=== PATIENT | female | born 1970 | race Caucasian/White ===

== ENCOUNTER 2020-04-27 00:57 | Outpatient (CLI) | payer BC, SELFPAY ==
--- NOTE | 2020-04-27 06:45 | DI.US_ITS ---
EXAM: US PELVIS TRANSVAGINAL CLINICAL HISTORY: DYSFUNCTIONAL UTERINE BLEEDING,N93.8. TECHNIQUE: Transabdominal and transvaginal pelvic ultrasound was performed using standard protocol. COMPARISON: No exams were available for comparison FINDINGS: KIDNEYS: Kidneys are symmetric in size. No evidence of renal calculi. No evidence of hydronephrosis. No renal mass or cyst identified. UTERUS: Position: Anteverted. Size: 9.2 long by 4.9 AP x 6.9 transverse cm Endometrium: 1.2 cm. Normal for patient's menstrual status. Myometrium: Heterogeneous with multiple masses present likely reflecting fibroids. The largest is se en in the fundus and measures 4.2 x 3.1 x 3.5 cm. Cervix: Unremarkable. OVARIES: Right: 1.8 x 0.9 x 1.4 cm Cyst or mass: None. Left: 1.5 x 1 x 0.8 cm Cyst or mass: None. DOPPLER: Color: Symmetric and uniform flow to both ovaries. No hyperemia. CUL-DE-SAC: Free fluid: None. Other: None. IMPRESSION: 1. Normal sonographic appearance of the kidneys. 2. Fibroid uterus. 3. Unremarkable bilateral ovaries. DATA REPOSITORY:
== END 2020-04-27 01:17 ==
PROVIDERS: PCP Family Medicine; Visit Provider Family Medicine
DX: N93.8 Other specified abnormal uterine and vaginal bleeding (principal); D25.9 Leiomyoma of uterus, unspecified
CPT/HCPCS: 76830; 76856

== ENCOUNTER 2020-04-27 01:13 | Outpatient (CLI) | payer BC, SELFPAY ==
[2020-04-27 07:56] LABS: Abs Immature Grans 0.02 k/cumm (0.0-0.09); Absolute Basophil Count 0.04 k/cumm (0.0-0.2); Absolute Eosinophil Count 0.14 k/cumm (0.0-0.7); Absolute Lymphocyte Count 1.83 k/cumm (1.2-3.4); Absolute Monocyte Count 0.61 k/cumm (0.11-0.7); Absolute Neutrophil Count 5.16 k/cumm (1.2-6.7); Basophils % 0.5; Eosinophils % 1.8; HCT 35.9 % (36.0-46.0); Immature Grans % 0.3 %; Lymphocytes % 23.5; Mean Corp. HGB Concentration 30.6 g/dL (32.0-36.0); Mean Corpuscular Hemoglobin 25.5 pg (27.0-33.0); Mean Corpuscular Volume 83.3 fL (80-95); Mean Platelet Volume 9.7 fL (8.0-11.0); Monocytes % 7.8; Neutrophils % 66.1; Platelet Count 356 x1000/uL (130-400); RBC 4.31 m/cumm (4.00-5.20)
[2020-04-27 08:33] LABS: Iron 17 ug/dL (50-170); Total Iron Binding Capacity 394 ug/dL (250-450); Transferrin Sat 4 % (15-50)
[2020-04-27 08:55] LABS: ALT 23 U/L (14-59); AST 13 U/L (15-37); Albumin 3.8 g/dL (3.4-5.0); Alkaline Phosphatase 75 U/L (46-116); Anion Gap 6.3 mmol/L (3-11); BUN 14 mg/dL (7-18); Bilirubin, Total 0.2 mg/dL (0.2-1.0); CO2 29.7 mmol/L (21.0-32.0); CREATININE 0.85 mg/dL (0.55-1.02); Calcium 9.1 mg/dL (8.5-10.1); Calculated LDL 147 mg/dL (<100); Chloride 105 mmol/L (98-107); Cholesterol 235 mg/dL (<200); Ferritin 10 ng/mL (8-252); Glucose 105 mg/dL (74-106); HDL Cholesterol 62 mg/dL (40-60); Potassium 4.5 mmol/L (3.5-5.1); Sodium 141 mmol/L (136-145); Triglyceride 130 mg/dL (<150); Vitamin B12 245 pg/mL (193-986)
[2020-04-28 05:53] LABS: Vitamin D 25 Total 18.9 ng/ml (30-100)
== END 2020-04-27 01:33 ==
PROVIDERS: PCP Family Medicine; Visit Provider Family Medicine
DX: N93.8 Other specified abnormal uterine and vaginal bleeding (principal); F41.9 Anxiety disorder, unspecified; F98.8 Other specified behavioral and emotional disorders with onset usually occurring in childhood and adolescence; Z00.00 Encounter for general adult medical examination without abnormal findings
CPT/HCPCS: 36415; 80053; 80061; 82306; 82607; 82728; 83540; 83550; 84443; 85025

== ENCOUNTER 2020-04-29 05:33 | Outpatient (RCR) | payer BC, SELFPAY ==
[2020-04-29] MEDS: Normal Saline Flush 10 ML SYR IVP (13:00)
[2020-04-29] MEDS: SODIUM FER. GLUC./SUC. 125 MG in Normal Saline 100 ML 110 MG IVPB (13:13)
[2020-04-29 13:38] VITALS: BP 119/79; PULSE 87; RESP 18; O2SAT 99
== END 2020-05-17 23:59 | disposition home or self-care (01) ==
LOC: INF 05:33
PROVIDERS: PCP Family Medicine; Visit Provider Family Medicine
DX: D50.0 Iron deficiency anemia secondary to blood loss (chronic) (principal); N93.8 Other specified abnormal uterine and vaginal bleeding; R63.8 Other symptoms and signs concerning food and fluid intake
CPT/HCPCS: 96365; 96366; J3490

== ENCOUNTER 2020-05-10 16:39 | Outpatient (REF) | payer BC, SELFPAY ==
--- NOTE | 2020-05-10 16:00 | ENDOMET_PTH ---
PATIENT: Lory Hernandez LOC: [facility] U#:[id number] AGE/SX: 50/F ROOM: RE05/10/[address]: Nano Sarabia : 1970 BED: DIS: 05/10/2020 SPEC #: [id number] RECD: 05/10/20 17:46 STATUS: HEIDI REQ #: [id number] REINALDO: 05/10/20 16:[address]: Nano Sarabia DEPT: Surgical Specimen RECD BY: Stella Solis ENTERED: 05/10/20 17:47 SP TYPE: Endomet OTHR DR: Rosy Sherwood MD, DC Tissues: 1 - ENDOMETRIUM BX/CURRETTE Procedures: GROSS AND MICRO LEVEL 4 Comments: [id number]
== END 2020-05-10 16:59 ==
LOC: LBN 16:39
PROVIDERS: PCP Family Medicine; Visit Provider Obstetrics & Gynecology Gynecology
DX: N85.8 Other specified noninflammatory disorders of uterus (principal); N93.8 Other specified abnormal uterine and vaginal bleeding
CPT/HCPCS: 88305

== ENCOUNTER 2020-05-23 00:10 | Outpatient (CLI) | payer BC, SELFPAY ==
--- NOTE | 2020-05-23 07:00 | DI.MAMMO_ITS ---
EXAM: MAMMO SCREENING CLINICAL HISTORY: screening, Z12.39 TECHNIQUE: Mammograms were interpreted according to the usual protocol including computer analysis w [employer] CAD system, tomosynthesis and C-view imaging. COMPARISON: 2012 through 2018 FINDINGS: The breasts are composed of heterogeneously dense fibroglandular densities, Breast Density category C . No suspicious masses or suspicious microcalcifications are seen. No skin thickening or abnormal axillary lymph nodes are seen. There has been no significant change from prior exams. IMPRESSION: BI-RADS Category 1: Negative mammogram. Yearly screening mammography is recommended. Breast Density Category C, heterogeneously dense tissue which decreases the sensitivity of the mammog kiran. The mammogram demonstrates the patient's breast tissue is dense. Dense breast tissue is very common a nd is not abnormal but dense breast tissue can make it harder to find cancer on a mammogram. Also, de nse breast tissue may increase breast cancer risk. This information about the result of the mammogram report was provided to the patient to raise their awareness. Use this report when you speak with the patient about their risks for breast cancer, which includes their family history. At that time, you may recommend additional screening tests (Ultrasound or MRI) as they might be useful based on their r isk. A negative radiographic report should not delay biopsy if a dominant or clinically suspicious mass is present. Up to ten percent of cancers are not identified on mammography. A negative report may reinforce clinical impression. Adenosis and dense breasts may obscure an underlying neoplasm. False positive reports average 6 to 10%.
== END 2020-05-23 00:30 ==
PROVIDERS: PCP Family Medicine; Visit Provider Family Medicine
DX: Z12.31 Encounter for screening mammogram for malignant neoplasm of breast (principal)
CPT/HCPCS: 77063; 77067

== ENCOUNTER 2020-05-30 01:46 | Outpatient (CLI) | payer BC, SELFPAY ==
[2020-06-01 15:11] LABS: COVID-19 RT-PCR Result NEGATIVE (Negative)
== END 2020-05-30 02:06 ==
PROVIDERS: PCP Family Medicine; Visit Provider Obstetrics & Gynecology Gynecology
DX: Z11.59 Encounter for screening for other viral diseases (principal); Z01.818 Encounter for other preprocedural examination
CPT/HCPCS: U0003

== ENCOUNTER 2020-05-30 08:18 | Outpatient (CLI) | payer BC, SELFPAY ==
[2020-05-30 10:39] LABS: HCT 36.1 % (36.0-46.0); HGB 11.3 g/dL (12.0-15.5); Mean Corp. HGB Concentration 31.3 g/dL (32.0-36.0); Mean Corpuscular Volume 83.2 fL (80-95); Platelet Count 368 x1000/uL (130-400); RBC 4.34 m/cumm (4.00-5.20); White Blood Cell Count 6.07 k/cumm (4.4-10.8)
[2020-05-30 11:25] LABS: Anion Gap 8.2 mmol/L (3-11); BUN 7 mg/dL (7-18); CO2 28.8 mmol/L (21.0-32.0); CREATININE 0.74 mg/dL (0.55-1.02); Calcium 9.1 mg/dL (8.5-10.1); Chloride 103 mmol/L (98-107); Glucose 99 mg/dL (74-106); Potassium 4.7 mmol/L (3.5-5.1); Sodium 140 mmol/L (136-145)
[2020-05-30 11:31] LABS: HCG Quant, Pregnancy < 1 mIU/mL (1-3)
== END 2020-05-30 08:38 ==
PROVIDERS: PCP Family Medicine; Visit Provider Obstetrics & Gynecology Gynecology
DX: N93.8 Other specified abnormal uterine and vaginal bleeding (principal); Z01.818 Encounter for other preprocedural examination; Z01.812 Encounter for preprocedural laboratory examination
CPT/HCPCS: 36415; 80048; 85027; 86850; 86900; 86901; 84702

== ENCOUNTER 2020-06-08 11:47 | Observation (INO) | payer BC, SELFPAY ==
[2020-06-08] VITALS (18 sets, daily range): BP systolic 92–112; BP diastolic 52–73; PULSE 68–91; RESP 15–20; TEMP 36.3–36.9; O2SAT 96–100
[2020-06-08] MEDS: Lactated Ringers 1,000 ML 125 ML IV ×3 (06:44→19:17)
[2020-06-08] MEDS: ceFAZolin 2 GM/50 ML BAG IVPB (07:56)
[2020-06-08] MEDS: Bupivacaine 0.25% Pres-Free 30 ML VIAL (08:52)
--- NOTE | 2020-06-08 10:25 | UTER_PTH ---
PATIENT: Lory Hernandez LOC: OBS U#:[id number] AGE/SX: 50/F ROOM: OBS.305 RE06/08/[address]: Nano Sarabia : 1970 BED: A DIS: 06/09/2020 SPEC #: [id number] RECD: 06/08/20 12:44 STATUS: HEIDI REQ #: [id number] ERINALDO: 06/08/20 10:[address]: Nano Sarabia DEPT: Surgical Specimen RECD BY: Stella Solis ENTERED: 06/08/20 12:44 SP TYPE: UTER OTHR DR: Rosy Sherwood MD, DC Tissues: 1 - UTERUS W OR W/O OVARIES(NOT TUMOR/PROLAPSE) Procedures: GROSS AND MICRO LEVEL 5 Comments: [id number]
--- NOTE | 2020-06-08 11:55 | W.PM.OP ---
Date of service: 06/08/20 Time of Service: 11:56 Operative Note Operative Note DATE OF PROCEDURE: 06/08/20 PRE-OP DIAGNOSIS: abnormal uterine bleeding. fibroid uterus PROCEDURE: laparoscopic assisted vaginal hysterectomy with bilateral salpingectomy and bladder cystoscopy SURGEON: Nano Sarabia CUSTOM HARVESTER: Chery Torres ANESTHESIA: GETA and spinal ESTIMATED BLOOD LOSS: 200 PATHOLOGY: other (uterus, fallopian tubes, cervix) COMPLICATIONS: None Patient was transported to: PACU Patient's condition: stable Indications: Begin her on50yo female with history of abnormal uterine bleeding and symptomatic fibroid uterus who desires definitive therapy. Findings: Enlarged bulky uterus with a cervical and fundal fibroid. Normal right and left adnexa functional ovarian cyst on right ovary. Procedure Description: Patient was brought to the OR where she was placed in the dorsal supine position and spinal anesthesia was administered without difficulty. She was then placed in the dorsal lithotomy position in yellowfin stirrups with SCDs and teds hose on. She was prepped and draped in the usual sterile fashion a surgical timeout was performed a bivalve speculum was placed into the vagina and the anterior lip of the cervix grasped with single-tooth tenaculum and a Grigsby uterine manipulator was inserted and left in place. A Tony catheter was inserted to gravity drainage. Attention was turned to the patient's abdomen where the periumbilical subcutaneous tissue was infiltrated with quarter percent Marcaine without epinephrine. A 1.2 cm vertical skin incision was made with a scalpel and through this incision with CO2 insufflation showing a drop upon entry into the abdominal cavity. Pneumoperitoneum was established and a 12 mm Visiport was introduced under direct observation into the abdominal cavity. Patient was placed in Trendelenburg and the abdomen and pelvis carefully inspected. LigaSure bipolar device was used to incise the mesosalpinx along the length of the left fallopian tube which was then amputated from the uterus at the uterine cornua. It was then passed through the 10 mm scope and sent to pathology. The round ligament was identified grasped cauterized and incised and the anterior broad ligament was sequentially clamped cauterized and the sides to the lateral margin of the vesicouterine peritoneum. The bladder was carefully dissected away from the lower uterine segment. The uterine ovarian ligament was sequentially clamped cauterized and transected using the LigaSure device. The posterior broad ligament was incised and cauterized in a similar fashion. This revealed the branch of the left uterine artery which was sequentially cauterized. Effectively freeing the patient's left broad ligament from the uterine attachments. A similar technique was carried out on the patient's right fallopian tube which was not amputated from the uterine cornua but was left attached to the uterine cornua. Otherwise the uterus was detached from the ovarian ligament using the LigaSure device and both the anterior and posterior broad ligament were sequentially clamped cauterized and transected to the level of the lower uterine segment. Decision was made to proceed with the vaginal portion of the hysterectomy. A weighted speculum was placed into the vagina Two Susan clamps were placed on the anterior and posterior uterine cervix respectively and the body of the cervix was then infiltrated with 1% Lidocaine with dilute Epinephrine and the cervix was circumferentially incised with the Bovie electrocautery. The bladder was then dissected off of the pubovesical cervical fascia anteriorly with a moistened gauze. We were unable to enter the anterior cul-de-sac so his attention was turned to the posterior cul-de-sac where in a similar fashion the rectovaginal fascia was bluntly dissected and entry into the posterior cul-de-sac was performed sharply. A long billed weighted was placed in the posterior cul-de-sac and remained in place during the case. Both the right and left uterosacral/cardinal ligaments were shortened digitally,clamped, transected, and suture-ligated. This allowed entry into the anterior cul-de-sac through which a right angle retractor was placed to retract the bladder away from the operative field. The remaining right and left broad ligament was sequentially clamped cauterized and transected to the level of the uterine cornua. The uterus and cervix and remaining fallopian tube were then delivered through the vagina without difficulty. The peritoneum at the vaginal cuff was located and closed with a pursestring suture of 2-0 Vicryl. The vaginal incision was closed in a vertical fashion using a lock suture of 0 Vicryl. The abdomen where the pneumoperitoneum was once again reestablished and the vaginal cuff carefully inspected and noted be hemostatic with the exception of a small amount of bright red blood on the right lateral margin of the uterine incision. The bleeding sites were made hemostatic by using vascular clips x2. Normal saline was used to irrigate the pelvis and once again the pedicles were noted to be hemostatic. The instruments trochars were removed under direct visualization and all trocar sites hemostatic. The fascia of the umbilical port site was reapproximated with interrupted sutures of 0 Vicryl and the skin of all trocar sites reapproximated with subcuticular suture of 4-0 Monocryl and covered with skin glue. . A bladder cystoscopy was then performed with normal saline as the distention medium. Bladder surface was intact and E flux of indigocarmine dye was visualized from both ureteral orifices. The cystoscope was removed Tony catheter was reinserted to gravity drainage patient was placed in the dorsal supine position, awakened from anesthesia extubated and transported recovery area in stable condition. All sponge lap needle counts correct x2
[2020-06-08] MEDS: diphenhydrAMINE 50 MG/ML VIAL 12.5 MG IVP (15:05)
[2020-06-08] MEDS: Ketorolac 30 MG/ML VIAL IVP ×2 (17:10→23:24)
[2020-06-08] MEDS: Docusate Sodium 100 MG CAP PO (19:49)
[2020-06-09] MEDS: Lactated Ringers 1,000 ML 125 ML IV (03:02)
[2020-06-09 03:52] VITALS: BP 130/64; PULSE 71; RESP 16; TEMP 36.6; O2SAT 98
[2020-06-09] MEDS: Ketorolac 30 MG/ML VIAL IVP (05:10)
[2020-06-09] MEDS: Normal Saline Flush 10 ML SYR IV (05:11)
--- NOTE | 2020-06-09 07:51 | W.PM.PROGNOT ---
Date of Service Date of service: 06/09/20 Time of Service: 07:51 Assessment and Plan Assessment and plan (1) S/P laparoscopic assisted vaginal hysterectomy (LAVH): Status: Acute Assessment and plan: Postoperative day #1 status post laparoscopically assisted vaginal hysterectomy with bilateral salpingectomy. Doing well. Discharge home today. Tony catheter out this morning. Ambulate, advance diet, oral pain medication. Follow-up in the office in [address] Sarabia Subjective Subjective Patient reports: pain is less, tolerating a regular diet, flatus and afebrile Exam Narrative Exam Narrative: Patient seen this morning postoperative day #1. She is feeling well. She has had some itching from her spinal anesthesia. Pain is well controlled. She is tolerating regular diet without difficulties. Eyes General: appearance normal, both eyes and all related structures Resp Effort & Inspection: normal respiratory effort Cardio Rate: regular rate Rhythm: regular rhythm GI Inspection: normal to inspection Palpation: soft, no guarding and nontender Other: Incisions are well approximated with a minimal amount of surrounding ecchymosis. No drainage. Skin General skin exam: no rashes or lesions noted Extrem General: no clubbing, cyanosis or edema and no calf tenderness Psych Appearance: grossly normal Speech and Movement: speech and movement normal Mood: congruent mood Affect: normal affect Attitude: cooperative Thought Process: normal Thought Content: normal Objective Objective Clinical Data: Vital Signs Temperature 97.9 F 06/09/20 03:52 Temperature Source Oral 06/09/20 03:52 Pulse 71 06/09/20 03:52 Pulse Rhythm Regular 06/08/20 23:36 Respiratory Rate 16 06/09/20 03:52 Respiratory Effort 06/09/20 03:52 Respiratory Depth Normal 06/09/20 03:52 Respiratory Pattern Normal 06/09/20 03:52 Blood Pressure 130/64 06/09/20 03:52 Pulse Oximetry 98 06/09/20 03:52 Respiratory End-tidal CO2 36 06/08/20 12:00 Oxygen Delivery Method Room Air 06/09/20 03:52 Oxygen Flow Rate 0 06/09/20 03:52 Pain Level 1 06/09/20 05:10 Comment 06/08/20 23:31 Intake & Output 06/08/20 06/08/20 06/09/20 11:59 23:59 11:59 Intake Total 950 / 1064.584 / 964.583 / 964.583 Output Total 200 / 1325 1125 / 1325 Balance 750 / 689.584 -60.416 / 689.584 964.583 / 964.583 Weight 214 lb 8.156 oz Intake: IV 950 / 1064.584 / 964.583 / 964.583 Output: Urine 1125 / 1125 Estimated Blood Loss 200 / 200 Other: Urine Color Yellow Green Pale Urine Appearance Clear Clear Clear Emesis Description None None
[2020-06-09] MEDS: Budesonide/Formoterol 160/4.5 6 GM 60 PUFF INH IH (07:55)
[2020-06-09] MEDS: Docusate Sodium 100 MG CAP PO (07:55)
--- NOTE | 2020-06-09 08:08 | W.PM.DS.N ---
Date of service: 06/09/20 Time of Service: 08:08 DS: Diagnosis Discharge Diagnosis (1) S/P laparoscopic assisted vaginal hysterectomy (LAVH): Status: Acute Discharge Plan Disposition Patient Disposition: HOME Condition: Good Discharge Details Reason For Visit: LAPAROSCOPIC ASSISTED VAGINAL HYSTERECTOMY Admit Date/Time: 06/08/20 11:47 Admit Provider: Nano Sarabia Attending Provider: Nano Sarabia Primary Care Provider: Rosy Sherwood [facility] Hospital Course: Patient underwent laparoscopically assisted vaginal hysterectomy with bilateral salpingectomy. She had normal postoperative course, normal intraoperative course. She was discharged home postoperative day #1, ambulating, tolerating regular diet and oral pain medication with stable vital signs. Home Meds and New Rx's Prescriptions: New ibuprofen 800 mg tablet 800 mg PO Q8H MDD 3 Qty: 30 RF: 0 hydrocodone-acetaminophen [[place]] 5-325 mg tablet 1 tab PO Q8H PRNQty: 12 RF: 0 docusate sodium [Colace] 100 mg capsule 100 mg PO DAILY Qty: 20 RF: 0 Continued methylphenidate HCl 10 mg tablet 20 mg PO BID MDD 4 Qty: 120 RF: 0 prochlorperazine maleate [Compazine] 10 mg tablet 10 mg PO Q8H PRN (Reason: nausea and vomiting) Qty: 60 RF: 0 elderberry fruit 200 mg capsule 200 mg PO DAILY RF: 0 venlafaxine 75 mg capsule,extended release 24hr 75 mg PO DAILY RF: 0 norethindrone acetate 5 mg tablet 5 mg PO DAILY Qty: 60 RF: 1 multivitamin 1 EACH tablet 1 ea PO DAILY RF: 0 ibuprofen 200 MG tablet 600 mg PO PRN RF: 0 levalbuterol tartrate [Xopenex HFA] 15 GM HFA aerosol inhaler 2 puff Inhalation TID PRNQty: 3 RF: 4 budesonide-formoterol [Symbicort] 10.2 GM HFA aerosol inhaler 2 puff Inhalation BID Qty: 3 RF: 12 ferrous gluconate 324 mg (38 mg iron) tablet 324 mg PO TID Qty: 90 RF: 5 ergocalciferol (vitamin D2) 1,250 mcg (50,000 unit) capsule 50,000 unit PO .3times week Qty: 38 RF: 4 Discharge Instructions Instructions: Laparoscopic Hysterectomy (DC) Additional Instructions: Pelvic rest for 6 weeks. No heavy lifting for 6 weeks Activity:: Activity as Tolerated Equipment/Supplies:: No Equipment Needed Diet:: Normal Diet Discharge Orders Discharge Orders: Discharge Order (Routine); Ordered 06/09/20 Ordered By: Chery Torres DS: Summary Status at Discharge Functional status at discharge: independent ambulation Overall status at discharge: patient is back to baseline Mental Status: mental status grossly normal Speech and Movement: speech and movement normal Mood: congruent mood Affect: normal affect Exam Narrative Exam Narrative: Patient seen and examined this morning. Doing well. Const General: healthy appearing, comfortable and no acute distress Nutritional Appearance: well nourished Orientation: alert and oriented to person Eyes General: appearance normal, both eyes and all related structures Resp Effort & Inspection: normal respiratory effort Cardio Rate: regular rate Rhythm: regular rhythm GI Inspection: normal to inspection, non-distended and incision Palpation: soft and no guarding Auscultation: normal bowel sounds Skin General skin exam: no rashes or lesions noted Extrem General: normal to inspection, no clubbing, cyanosis or edema and no calf tenderness Psych Mental Status: mental status grossly normal Speech and Movement: speech and movement normal Mood: congruent mood Affect: normal affect DS: Data Vitals/I&O Vitals and I&O: Vital Signs Temperature 97.9 F 06/09/20 03:52 Temperature Source Oral 06/09/20 03:52 Pulse 71 06/09/20 03:52 Pulse Rhythm Regular 06/08/20 23:36 Respiratory Rate 16 06/09/20 03:52 Respiratory Effort 06/09/20 03:52 Respiratory Depth Normal 06/09/20 03:52 Respiratory Pattern Normal 06/09/20 03:52 Blood Pressure 130/64 06/09/20 03:52 Pulse Oximetry 98 06/09/20 03:52 Respiratory End-tidal CO2 36 06/08/20 12:00 Oxygen Delivery Method Room Air 06/09/20 03:52 Oxygen Flow Rate 0 06/09/20 03:52 Pain Level 1 06/09/20 05:10 Comment 06/08/20 23:31 Intake & Output 06/08/20 06/08/20 06/09/20 11:59 23:59 11:59 Intake Total 950 / 2013.584 1064.584 2013.584 964.583 / 964.583 Output Total 200 / 1325 1125 / 1325 Balance 750 / 689.584 -60.416 / 689.584 964.583 / 964.583 Weight 214 lb 8.156 oz Intake: IV 950 / 2013.584 1064.584 / 2013.584 964.583 / 964.583 Output: Urine 1125 / 1125 Estimated Blood Loss 200 / 200 Other: Urine Color Yellow Green Pale Urine Appearance Clear Clear Clear Emesis Description None None PFSH Medical History ADD (attention deficit disorder) (Chronic 03/14/17) Anxiety (Chronic 03/14/17) Asthma (Chronic) MONITORING-IFRAH Atypical squamous cell changes of undetermined significance (ASCUS) on vaginal cytology (Resolved) 03/22 ASCUS POS ;HPV NEG repeat PAP and HPV neg Feeling stressed out (Resolved) family situations Headache disorder (Chronic 07/23/17) Lumbago (Resolved) Temporomandibular joint disorder (TMJ) (Resolved) 10/17/05 URI (upper respiratory infection) (Inactive) Surgical History Appendectomy (~03/1986) Cholecystectomy (~10/2009) S/P laparoscopic assisted vaginal hysterectomy (LAVH) (Acute) with bilateral salpingectomy Family History Mother Asthma Father Diabetes Essential hypertension Sister No problems noted. Brother No problems noted. Maternal Grandfather , 30s Heart disease Paternal Grandfather , 70s Diabetes Essential hypertension Heart disease Stroke Maternal Grandmother , 70s TB (tuberculosis) Breast cancer Asthma Paternal Grandmother , 20s No problems noted. Social History Smoking/Tobacco Use Status: Never Alcohol Intake: current Alcohol Intake frequency: a few times a week Alcohol type: wine Drug use: Never Substance use type: does not use Caregiver/Support person: No Household members: spouse and children Housing: house Communication Needs: Corrective Lenses Do you need help understanding health information?: Rarely current occupation: WORK FOR A NON PROFIT Pets and animals: Yes Pets and animals: cat(s) and dog(s) Sexually active: Yes Do you think of yourself as: straight/heterosexual Current gender identity: female What is your relationship status?: How often do you talk on the phone with friends or family?: three or more times per week How often do you get together with friends or relatives?: decline to answer Do you belong to any clubs or organized social groups?: no Panel score (0-1 are the most socially isolated patients): 2 What type of physical activity do you participate in: walking and yoga Duration: < 15 minutes/day Frequency: daily Deborah/Yazdanism: No preference Special deborah needs: No Seatbelt use: always Drive intox or ride w/intox seasonal driver: No Do you feel safe at home: Yes Do you feel safe in your relationship?: Yes
[2020-06-09 08:30] VITALS: BP 91/57; PULSE 70; RESP 16; TEMP 36.8; O2SAT 99
== END 2020-06-09 13:35 | disposition home or self-care (01) ==
LOC: OBS 12:58
PROVIDERS: Admitting Provider Obstetrics & Gynecology Gynecology; PCP Family Medicine; Visit Provider Obstetrics & Gynecology Gynecology
PROC: 0UT9FZZ Resection of Uterus, Via Natural or Artificial Opening With Percutaneous Endoscopic Assistance (ICD-10-PCS; CPT 58552; principal; 2020-06-08 07:30)
DX: N80.0 Endometriosis of uterus (principal); D25.1 Intramural leiomyoma of uterus; N72 Inflammatory disease of cervix uteri; N83.8 Other noninflammatory disorders of ovary, fallopian tube and broad ligament; N93.8 Other specified abnormal uterine and vaginal bleeding; D25.9 Leiomyoma of uterus, unspecified; G89.18 Other acute postprocedural pain; Z90.710 Acquired absence of both cervix and uterus
CPT/HCPCS: 58552; 96360; 96361; 99232; 99238; 88307; G0378; J0690; J1100; J1200; J1885; J2001; J2250; J2310; J2405; J2704; J3010

== ENCOUNTER 2020-10-10 04:24 | Outpatient (CLI) | payer BC, SELFPAY ==
[2020-10-11 21:18] LABS: Patient Race White; SARS-CoV-2 RNA Undetected (Undetected); SARS-CoV-2 Specimen Source Nasal
== END 2020-10-10 04:44 ==
PROVIDERS: PCP Family Medicine; Visit Provider Family Medicine
DX: Z11.59 Encounter for screening for other viral diseases (principal)
CPT/HCPCS: U0003

== ENCOUNTER 2021-02-07 03:11 | Outpatient (CLI) | payer BC, SELFPAY ==
[2021-02-08 13:58] LABS: COVID-19 RT-PCR UVMMC Result Negative (Negative)
== END 2021-02-07 03:12 | disposition home or self-care (01) ==
LOC: LBO 03:11
PROVIDERS: PCP Family Medicine; Visit Provider Family Medicine
DX: Z20.822 Contact with and (suspected) exposure to COVID-19 (principal)
CPT/HCPCS: U0003

== ENCOUNTER 2021-08-07 18:48 | Outpatient (REF) | payer BC, SELFPAY ==
[2021-08-09 17:07] LABS: COVID-19 RT-PCR UVMMC Result Negative (Negative)
== END 2021-08-07 18:49 | disposition home or self-care (01) ==
LOC: NCHCN 18:48
PROVIDERS: PCP Family Medicine; Referring Provider Family Medicine; Visit Provider Family Medicine
DX: Z20.822 Contact with and (suspected) exposure to COVID-19 (principal); R09.81 Nasal congestion
CPT/HCPCS: U0003

== ENCOUNTER 2021-10-03 08:44 | Outpatient (CLI) | payer BC, SELFPAY ==
--- NOTE | 2021-10-03 11:15 | DI.MAMMO_ITS ---
Exam(s) MAMMO SCREENING EXAM: MAMMO SCREENING CLINICAL HISTORY: screening TECHNIQUE: Mammograms were interpreted according to the usual protocol including computer analysis w [employer] CAD system, tomosynthesis and C-view imaging. COMPARISON: 2012 through 2019 FINDINGS: The breasts are composed of heterogeneously dense fibroglandular densities, Breast Density category C . No suspicious masses or suspicious microcalcifications are seen. No skin thickening or abnormal axillary lymph nodes are seen. There has been no significant change from prior exams. IMPRESSION: BI-RADS Category 1, Negative mammogram. Yearly screening mammography is recommended. Breast Density Category C, heterogeneously Dense. The mammogram demonstrates the patient's breast tissue is dense. Dense breast tissue is very common a nd is not abnormal but dense breast tissue can make it harder to find cancer on a mammogram. Also, de nse breast tissue may increase breast cancer risk. This information about the result of the mammogram report was provided to the patient to raise their awareness. Use this report when you speak with the patient about their risks for breast cancer, which includes their family history. At that time, you may recommend additional screening tests (Ultrasound or MRI) as they might be useful based on their r isk. A negative radiographic report should not delay biopsy if a dominant or clinically suspicious mass is present. Up to ten percent of cancers are not identified on mammography. A negative report may reinforce clinical impression. Adenosis and dense breasts may obscure an underlying neoplasm. False positive reports average 6 to 10%.
== END 2021-10-03 09:04 ==
PROVIDERS: PCP Family Medicine; Visit Provider Family Medicine
DX: Z12.31 Encounter for screening mammogram for malignant neoplasm of breast (principal)
CPT/HCPCS: 77063; 77067

== ENCOUNTER 2021-11-24 09:41 | Outpatient (CLI) | payer BC, SELFPAY ==
--- NOTE | 2021-11-24 09:00 | DI.RAD_ITS ---
Exam(s) XR CHEST 2V PA LATERAL EXAM: XR CHEST 2V PA LATERAL CLINICAL HISTORY: cough worsening,COVID +, U07.1 TECHNIQUE: 2D digital imaging was performed of the chest. Two images were obtained. PA and lateral views were obtained. COMPARISON: No exams were available for comparison FINDINGS: MEDIASTINUM: Normal. HEART: Normal. PULMONARY VASCULATURE: Normal. LUNGS: Clear. PLEURAL SPACE: No pleural effusion or pneumothorax. BONE:Within normal limits for the patient's age. OTHER FINDINGS:Normal. IMPRESSION: No acute pulmonary findings. DATA REPOSITORY: RADIATION DOSE DELIVERED:
== END 2021-11-24 10:01 ==
PROVIDERS: PCP Family Medicine; Visit Provider Physician Assistant
DX: U07.1 COVID-19 (principal)
CPT/HCPCS: 71046

== ENCOUNTER 2022-07-12 09:24 | Outpatient (CLI) | payer BC, SELFPAY ==
[2022-07-12 12:35] LABS: HCT 40.6 % (36.0-46.0); HGB 12.8 g/dL (11.2-15.7); MCH 27.1 pg (27.0-33.0); MCHC 31.5 % (32.0-36.0); MCV 86 fL (80-95); MPV 10.2 fL (8.0-11.0); Platelet Count 301 10^3/uL (130-400); RBC 4.73 10^6/uL (3.93-5.22); RDW 14.4 % (11.7-14.6); RDW-SD 45.5 fL; WBC 6.92 10^3/uL (4.4-10.8)
[2022-07-12 13:05] LABS: ALT 30 U/L (14-59); AST 22 U/L (15-37); Albumin 4.1 g/dL (3.4-5.0); Alkaline Phosphatase 71 U/L (46-116); Anion Gap 7.8 mmol/L (3-11); BUN 9 mg/dL (7-18); Bilirubin, Total 0.5 mg/dL (0.2-1.0); CO2 31.2 mmol/L (21.0-32.0); CREATININE 0.8 mg/dL (0.55-1.02); Calcium 9.3 mg/dL (8.5-10.1); Calculated LDL 171 mg/dL (<100); Chloride 102 mmol/L (98-107); Cholesterol 277 mg/dL (<200); Glucose 113 mg/dL (74-106); HDL Cholesterol 88 mg/dL (40-60); Potassium 4.7 mmol/L (3.5-5.1); Sodium 141 mmol/L (136-145); TSH (W/Ref FT4) 2.36 uIU/mL (0.36-3.74); Total Protein 8.1 g/dL (6.4-8.2); Triglyceride 90 mg/dL (<150)
== END 2022-07-12 09:25 | disposition home or self-care (01) ==
LOC: LOS 09:24
PROVIDERS: PCP Family Medicine; Referring Provider Family Medicine; Visit Provider Family Medicine
DX: Z00.00 Encounter for general adult medical examination without abnormal findings (principal); E66.3 Overweight; J45.909 Unspecified asthma, uncomplicated
CPT/HCPCS: 36415; 80053; 80061; 85027; 84443

== ENCOUNTER 2023-06-05 14:06 | Outpatient (REF) | payer BC, SELFPAY ==
[2023-06-05 19:40] LABS: *AMPHETAMINES SCREEN URINE Negative (Negative); *BARBITURATES SCREEN URINE Negative (Negative); *BENZODIAZEPINES SCREEN URINE Negative (Negative); Cannabinoids THC Negative (Negative); Cocaine Screen,Urine Negative (Negative); METHADONE URINE SCREEN Negative (Negative); OPIATES URINE SCREEN Negative (Negative)
[2023-06-05 19:41] LABS: Tricyclic Antidepressants Negative (Negative)
== END 2023-06-05 14:07 | disposition home or self-care (01) ==
LOC: LBN 14:06
PROVIDERS: PCP Family Medicine; Visit Provider Nurse Practitioner Family
DX: F98.8 Other specified behavioral and emotional disorders with onset usually occurring in childhood and adolescence (principal)
CPT/HCPCS: 80307

== ENCOUNTER → 2023-07-10 03:46 | Outpatient (CLI) | payer BC, SELFPAY ==
--- NOTE | 2023-07-10 07:15 | DI.MAMMO_ITS ---
Exam(s) MAMMO SCREENING EXAM: MAMMO SCREENING CLINICAL HISTORY: screening,z12.39 TECHNIQUE: Bilateral full field digital CC and MLO mammographic images were obtained with 3D tomosyn thesis and utilizing computer aided detection (CAD). COMPARISON: Available for comparison. FINDINGS: Masses/Architectural Distortion: None seen. Microcalcifications: No suspicious pleomorphic-type are seen. Skin Thickening/Nipple Retraction: None. IMPRESSION: 1. No significant interval change with no specific features of malignancy noted. 2. Unless there is more urgent need, screening mammography is recommended, as per [employer] guidelines. BI-RADS Category 1 - Negative Breast Density - Category C - Heterogeneously dense Breast density category C or D implies that the patient has dense breast tissue. Dense breast tissue is very common and is not abnormal but dense breast tissue can make it harder to find cancer on a ma mmogram. Also, dense breast tissue may increase their breast cancer risk. This information about the result of the mammogram report was provided to the patient to raise their awareness. Use this report when you speak with the patient about their risks for breast cancer, which includes their family hist ory. At that time, you may recommend for more screening tests (Ultrasound or MRI) as they might be us eful based on their risk. A negative radiographic report should not delay biopsy if a dominant or clinically suspicious mass is present. Up to ten percent of cancers are not identified on mammography. A negative report may reinforce clinical impression. Adenosis and dense breasts may obscure an underlying neoplasm. False positive reports average 6 to 10%. Patient will receive a letter notifying them of these results.
== END ==
PROVIDERS: PCP Nurse Practitioner Family; Visit Provider Nurse Practitioner Family
DX: Z12.31 Encounter for screening mammogram for malignant neoplasm of breast (principal)
CPT/HCPCS: 77063; 77067

== ENCOUNTER 2024-07-31 01:17 | Outpatient (CLI) | payer BC, SELFPAY ==
[2024-07-31 09:37] LABS: Anion Gap 7.1 mmol/L (3-11); BUN 14 mg/dL (7-18); CO2 30.9 mmol/L (21.0-32.0); CREATININE 0.8 mg/dL (0.55-1.02); Calculated LDL 172 mg/dL (<100); Chloride 104 mmol/L (98-107); Cholesterol 274 mg/dL (<200); Estimated GFR 86.96 (mL/min/1.73m2); Glucose 108 mg/dL (74-106); HDL Cholesterol 87 mg/dL (40-60); Potassium 4.6 mmol/L (3.5-5.1); Sodium 142 mmol/L (136-145); Triglyceride 75 mg/dL (<150)
[2024-08-03 09:54] LABS: Hepatitis C Ab w Rflx HCV PCR Negative (Negative)
[2024-08-03 10:51] LABS: HBs Antibody, Quant <3.1 mIU/mL (See Note); Hep B Surface Ab Negative (See Note); Hepatitis B Core Antibody Negative (Negative); Hepatitis B Surface Antigen Negative (Negative)
== END 2024-07-31 01:18 | disposition home or self-care (01) ==
PROVIDERS: PCP Nurse Practitioner Family; Visit Provider Nurse Practitioner Family
DX: Z11.59 Encounter for screening for other viral diseases (principal); F33.9 Major depressive disorder, recurrent, unspecified; E78.5 Hyperlipidemia, unspecified; E55.9 Vitamin D deficiency, unspecified
CPT/HCPCS: 36415; 80048; 80061; 82306; 86704; 86706; 86803; 87340; 83036

== ENCOUNTER 2024-12-18 20:39 | Outpatient (REF) | payer BC, SELFPAY ==
[2025-01-01 13:45] LABS: Amphetamine None Detected
== END 2024-12-18 20:40 | disposition home or self-care (01) ==
LOC: LBN 20:39
PROVIDERS: PCP Nurse Practitioner Family; Visit Provider Nurse Practitioner Family
DX: Z79.899 Other long term (current) drug therapy (principal); F90.9 Attention-deficit hyperactivity disorder, unspecified type
CPT/HCPCS: 80324

== ENCOUNTER 2025-02-26 00:12 | Outpatient (CLI) | payer BC, SELFPAY ==
--- NOTE | 2025-02-26 09:10 | DI.MAMMO_ITS ---
Exam(s) MAMMO SCREENING EXAM: MAMMO SCREENING CLINICAL HISTORY: screening,z12.39 TECHNIQUE: Mammograms were interpreted according to the usual protocol including computer analysis w [employer] CAD system, tomosynthesis and C-view imaging. COMPARISON: 2017 through 2022 FINDINGS: The breasts are composed of scattered fibroglandular densities, Breast Density category B. Right breast: No suspicious masses or suspicious microcalcifications are seen. No skin thickening or abnormal axillary lymph nodes are seen. There has been no significant change from prior exams. Left breast: The posterior lateral aspect of the left breast, at the edge of the image on CC view, th ere is a question of an area increased nodular density. Spot compression view is requested. Ultraso und may be indicated at that time. There is no skin thickening or axillary lymph nodes. No suspicio us microcalcifications. IMPRESSION: Left breast: BI-RADS Category 0 - Incomplete: Need additional imaging evaluation mammogram Right breast: Yearly screening mammography is recommended. Breast Density - Category B, scattered fibroglandular densities. A negative radiographic report should not delay biopsy if a dominant or clinically suspicious mass is present. Up to ten percent of cancers are not identified on mammography. A negative report may reinforce clinical impression. Adenosis and dense breasts may obscure an underlying neoplasm. False positive reports average 6 to 10%. Patient will receive a letter notifying them of these results.
== END 2025-02-26 00:32 ==
LOC: DI 00:12
PROVIDERS: PCP Nurse Practitioner Family; Visit Provider Nurse Practitioner Family
DX: Z12.31 Encounter for screening mammogram for malignant neoplasm of breast (principal); R92.323 Mammographic fibroglandular density, bilateral breasts
CPT/HCPCS: 77063; 77067

== ENCOUNTER 2025-03-05 00:07 | Outpatient (CLI) | payer BC, SELFPAY ==
--- NOTE | 2025-03-05 | DI.US_ITS ---
Exam(s) MG MAMMO SCREEN CALL BACK UNI US BREAST LT COMPLETE EXAM: MG MAMMO SCREEN CALL BACK UNI-LEFT AND COMPLETE LEFT BREAST ULTRASOUND CLINICAL HISTORY: R92.8 ABN Mammo, LT breast ? of increased nodular density posterior lateral. TECHNIQUE: Unilateral LEFT BREAST spot mammographic images obtained with 3D tomosynthesisand [employer] ng computer aided detection (CAD). . Complete LEFT breast Ultrasound was also performed, including all 4 quadrants, the retroareolar regio n, and the ipsilateral axilla. COMPARISON: Prior mammograms dating back to 2018 were reviewed. This additional imaging was perfo rmed due to findings described on the recent screening mammogram of 02/26/2025. FINDINGS: DIAGNOSTIC MAMMOGRAM: Additional mammographic views performed todaydoes not dissipate the finding in the posterior aspect o f the breast on CC view. There are no malignant-appearing microcalcification region. On the spot co mpression view and is difficult to determine if this is overlapping tissue versus true nodule. Unfor tunately numerous prior mammograms did not reach as far back into the breast to determine if this has been present previously. COMPLETE LEFT BREAST ULTRASOUND: Ultrasound performed today reveals a 2 millimeter microcyst at the 1 o'clock position, 7 cm in from t he nipple. This does not have appearance correspond to the finding on the mammogram. There are no u ltrasound findings posteriorly to correspond to the finding on the mammogram. Scanning of the ipsilateral axilla reveals no significant adenopathy. IMPRESSION: 1. Mammographically visible asymmetric density posteriorly in the left breast lateral of center near the chest wall. Is difficult to determine if this has been present on prior mammograms as the mammo gram of 02/26/2025 was a 1st mammogram that reached this far back into the breast. 2. There is no ominous mass evident on ultrasound at this location or elsewhere in the left breast. The only finding on ultrasound is a benign 2 millimeter microcyst at the 1 o'clock position. Appropriate follow-up as discussed by myself with the patient today is repeat left breast mammogram w ith repeat exaggerated CC spot view in 3 months time and also recommend repeating the breast ultrasou nd at that time.. The patient was informed of these findings and recommendations by myself prior to leaving the departm ent today. BI-RADS Category 3 - 3 month - Probably Benign Finding: Recommend follow-up mammography in 3 months Breast Density - Category C - Heterogeneously dense Breast density Category C or D implies that the patient has dense breast tissue. Dense breast tissue can make it harder to find cancer on a mammogram. Dense breast tissue is also associated with an incr eased risk of breast cancer. This information about the result of the mammogram report was provided to the patient to raise their awareness. Use this report when you speak with the patient about their risks for breast cancer, which includes their family history. At that time, you may recommend additional screening tests (Ultrasoun d or MRI) as these tests may add significant information. A negative radiographic report should not delay biopsy if a dominant or clinically suspicious mass is present. Up to ten percent of cancers are not identified on mammography. A negative report may reinforce clinical impression. Adenosis and dense breasts may obscure an underlying neoplasm. False positive reports average 6 to 10%. Patient will receive a letter notifying them of these results.
== END 2025-03-05 00:27 ==
LOC: DI 00:07
PROVIDERS: PCP Nurse Practitioner Family; Visit Provider Nurse Practitioner Family
DX: Z12.31 Encounter for screening mammogram for malignant neoplasm of breast (principal); R92.8 Other abnormal and inconclusive findings on diagnostic imaging of breast; R92.333 Mammographic heterogeneous density, bilateral breasts
CPT/HCPCS: 76642; 77063; 77067

== ENCOUNTER 2025-06-17 02:13 | Outpatient (CLI) | payer BC, SELFPAY ==
--- NOTE | 2025-06-17 | DI.US_ITS ---
Exam(s) US BREAST LT COMPLETE MG MAMMO DIAGNOSTIC UNI EXAM: MG MAMMO DIAGNOSTIC UNI-LEFT AND COMPLETE LEFT BREAST ULTRASOUND CLINICAL HISTORY: 3-6 mo f/u, f/u abnl lt, inconclusive mammo R92.8, Z09. TECHNIQUE: Unilateral LEFT BREAST CC AND MLO AND EXAGGERATED CC mammographic images were obtained with 3D tomosynthesis technique and utilizing computer aided detection (CAD). COMPLETE LEFT BREAST ULTRASOUND performed including all 4 quadrants as well as the left axilla. COMPARISON: Prior mammograms were reviewed, the most recent being February 2025. Ultrasound of February 2025 was also reviewed. FINDINGS: DIAGNOSTIC LEFT BREAST MAMMOGRAM: The asymmetric density located posterolaterally is unchanged from the mammogram of February 2025. there are no malignant-appearing microcalcification groups in this region nor elsewhere in left breast. Again noted that all prior mammograms did not reach as far back on the CC view as did the mammogram of February 2025. COMPLETE LEFT BREAST ULTRASOUND: There is no evidence of solid or significant cystic lesions in all 4 quadrants. The previously described small 2 mm microcyst at the 1 o'clock position is no longer seen. There are again no findings on ultrasound to correspond to the asymmetric density located posteriorly on the CC mammographic view. Scanning of the left axilla is again negative for significant adenopathy. IMPRESSION: 1. Stable mammographic finding posteriorly in the left breast as described above. 2. Negative complete left breast ultrasound Appropriate follow-up is repeat left breast imaging in 6 months. The patient was informed of the findings and follow-up recommendations by myself prior to leaving the department today. BI-RADS Category 3 - 6 month - Probably Benign Finding: Recommend follow-up mammography in 6 months Breast Density - Category C - The breast are heterogeneously dense, which may obscure small masses. Breast density Category C or D implies that the patient has dense breast tissue. Dense breast tissue can make it harder to find cancer on a mammogram. Dense breast tissue is also associated with an increased risk of breast cancer. This information about the result of the mammogram report was provided to the patient to raise their awareness. Use this report when you speak with the patient about their risks for breast cancer, which includes their family history. At that time, you may recommend additional screening tests (Ultrasound or MRI) as these tests may add significant information. A negative radiographic report should not delay biopsy if a dominant or clinically suspicious mass is present. Up to ten percent of cancers are not identified on mammography. A negative report may reinforce clinical impression. Adenosis and dense breasts may obscure an underlying neoplasm. False positive reports average 6 to 10%. Patient will receive a letter notifying them of these results.
== END 2025-06-17 02:33 ==
LOC: DI 02:13
PROVIDERS: PCP Nurse Practitioner Family; Visit Provider Nurse Practitioner Family
DX: Z09 Encounter for follow-up examination after completed treatment for conditions other than malignant neoplasm (principal); R92.8 Other abnormal and inconclusive findings on diagnostic imaging of breast
CPT/HCPCS: 76642; 77061; 77065; G0279